=== PATIENT | male | born 1950 | race Caucasian/White ===

== ENCOUNTER 2016-10-12 17:33 | Observation (INO) | payer MEDICARE ==
[~2016-10-12] VITALS: Ht 177.8 cm; Wt 91.0 kg
[2016-10-12] VITALS (7 sets, daily range): BP systolic 137–188; BP diastolic 86–117; PULSE 82–101; RESP 15–25; TEMP 98.6–99.1; O2SAT 94–98
[2016-10-12] MEDS ORDERED: MORPHINE SULFATE 4 MG/ML INJ IV PUSH ONE ×3 (17:45→21:15)
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
[2016-10-12 18:04] LABS: AUTOMATED NEUTROPHIL # 5.2 TH/MM3 (1.8-7.7); BASOPHIL % 0.3 % (0.0-2.0); EOSINOPHIL # 0.1 TH/MM3 (0-0.4); EOSINOPHIL % 0.8 % (0.0-4.0); HEMATOCRIT 48.4 % (39.0-51.0); HEMO FLAGS DIFF FINAL; LYMPHOCYTE # 1.8 TH/MM3 (1.0-4.8); MEAN CELL VOLUME 92.3 FL (80.0-100.0); MEAN CORPUSCULAR HEMOGLOBIN 31.4 PG (27.0-34.0); NEUT % 65.9 % (16.0-70.0); PLATELET COUNT 221 TH/MM3 (150-450); RED BLOOD COUNT 5.25 MIL/MM3 (4.50-5.90); RED CELL DISTRIBUTION WIDTH 14.2 % (11.6-17.2); WHITE BLOOD COUNT 7.9 TH/MM3 (4.0-11.0)
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
[2016-10-12 18:22] LABS: ANION GAP 9 MEQ/L (5-15); BICARBONATE 24.6 MEQ/L (21.0-32.0); BLOOD UREA NITROGEN 26 MG/DL (7-18); CHLORIDE 108 MEQ/L (98-107); GLOMERULAR FILTRATION RATE 42 ML/MIN (>89); POTASSIUM 3.9 MEQ/L (3.5-5.1); SODIUM (NA) 142 MEQ/L (136-145)
[2016-10-12 18:51] LABS: INTERNATIONAL NORMALIZED RATIO 0.9 RATIO
[2016-10-12 18:55] LABS: APTT (PATIENT) 26.4 SEC (24.3-30.1)
[2016-10-12] MEDS ORDERED: LISI10TA3 PO (19:05)
[2016-10-12] MEDS ORDERED: ASPI81CH7 CHEW (19:05)
[2016-10-12] MEDS ORDERED: ROSU10 PO (19:05)
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
--- NOTE | 2016-10-12 20:12 | RADRPT ---
EXAM DATE/TIME: 10/12/2016 19:27 [facility] COMPARISON: No previous studies available for comparison. INDICATIONS : Hit in the center of chest with hydralic press. IV CONTRAST: 71 cc Omnipaque 350 (iohexol) IV ; Cumulative dose for multiple exams. RADIATION DOSE: 17.94 CTDIvol (mGy) ; Combined studies - Thorax/Abdomen/Pelvis MEDICAL HISTORY : Cardiovascular disease. Hypertension. SURGICAL HISTORY : CABG Colon resection.Splenectomy. ENCOUNTER: Initial ACUITY: 1 day PAIN SCALE: 10/10 LOCATION: chest TECHNIQUE: Volumetric scanning of the chest was performed. Using automated exposure control and adjustment of t he mA and/or kV according to patient size, radiation dose was kept as low as reasonably achievable to obtain optimal diagnostic quality images. FINDINGS: LUNGS: Posterior atelectatic changes are noted within the lung bases. There is no consolidation or pneumotho rax. No concerning pulmonary nodule is visualized. PLEURA: There is no pleural thickening or pleural effusion. MEDIASTINUM: The heart and great vessels demonstrate no acute abnormality. There is no mediastinal or hilar lymph adenopathy. Median sternotomy wires are noted status post cardiac surgery. AXILLAE: Within normal limits. No lymphadenopathy. SKELETAL: Within normal limits for patient age. MISCELLANEOUS: The visualized upper abdominal organs demonstrate no acute abnormality. CONCLUSION: Posterior atelectatic changes within the lung bases. Torsten Choi MD on October 12, 2016 at 20:08 Board Certified Radiologist. This report was verified electronically.
[2016-10-12] MEDS ORDERED: IOHEXOL 350 MG/ML 10 ML VIAL (for RAD DIAG) IV ONE (20:18)
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
[2016-10-12] MEDS ORDERED: TETANUS/DIPHTHERIA TOXOID ADULT 0.5 ML VIAL IM ONE (21:15)
--- NOTE | 2016-10-12 21:43 | RADRPT ---
EXAM DATE/TIME: 10/12/2016 21:26 [facility] COMPARISON: No previous studies available for comparison. INDICATIONS : Left arm pain after heavy machine fell on arm. MEDICAL HISTORY : None. SURGICAL HISTORY : None. ENCOUNTER: Initial ACUITY: 1 day PAIN SCORE: 4/10 LOCATION: Left forearm FINDINGS: Moderate degenerative changes are noted involving the radiocarpal and ulnar carpal joint space. Ther e is no acute fracture or dislocation of the radius or ulna. There is a tiny metallic foreign body w ithin the proximal soft tissues of the left forearm. A small spur is noted arising from the olecrano n process of the proximal ulna. CONCLUSION: 1. No acute fracture or dislocation of the radius or ulna. 2. Moderate degenerative changes involving the radiocarpal and ulnar carpal joint space. 3. Small spur protruding from the olecranon process of the proximal ulna. 4. Tiny radiopaque foreign body within the proximal soft tissues of the left forearm. Torsten Choi MD on October 12, 2016 at 21:36 Board Certified Radiologist. This report was verified electronically.
--- NOTE | 2016-10-12 21:47 | RADRPT ---
EXAM DATE/TIME: 10/12/2016 21:29 [facility] COMPARISON: No previous studies available for comparison. INDICATIONS : Left hand pain after machine fell on hand. MEDICAL HISTORY : None. SURGICAL HISTORY : None. ENCOUNTER: Initial ACUITY: 1 day PAIN SCORE: 4/10 LOCATION: Left proximal hand FINDINGS: Moderate arthritic changes are noted involving the radiocarpal and ulnar carpal joint. There is an o ld ununited fracture involving the ulnar styloid process. There is no acute fracture or dislocation. Mild degenerative changes are noted involving the first carpometacarpal joint and the scaphotrapezi um and scaphotrapezoid joints. Mild degenerative changes are also noted involving the first interpha langeal joint. CONCLUSION: 1. No acute fracture or dislocation. 2. Old ununited fracture involving the ulnar styloid process. 3. Moderate arthritic changes involving the radiocarpal and ulnar carpal joints. 4. Mild arthritic changes involving the first carpometacarpal joint, first interphalangeal joint and scaphotrapezium/scaphotrapezoid joints. Torsten Choi MD on October 12, 2016 at 21:39 Board Certified Radiologist. This report was verified electronically.
[2016-10-12] MEDS ORDERED: MORPHINE SULFATE 4 MG/ML INJ IV PRN (23:15)
[2016-10-12] MEDS ORDERED: ONDANSETRON HCL 4 MG/2 ML VIAL IV PRN (23:15)
[2016-10-12] MEDS ORDERED: SODIUM CHLORIDE 0.9% FLUSH 10 ML FLUSH IV FLUSH PRN (23:15)
[2016-10-12] MEDS ORDERED: ACETAMINOPHEN/HYDROcodone 325 MG/5 MG TAB PO PRN (23:15)
[2016-10-12] MEDS ORDERED: MISCELLANEOUS NURSING INFORMATION XX SCH (23:15)
[2016-10-12] MEDS ORDERED: CHLORHEXIDINE GLUCONATE 2 % 1 PACK (2 CLOTHS) TOP PRN (23:15)
[2016-10-13] VITALS (7 sets, daily range): BP systolic 102–169; BP diastolic 66–99; PULSE 59–95; RESP 12–22; O2SAT 94–100
[2016-10-13] MEDS: DOCUSATE SODIUM 100 MG CAP PO SCH ×2 (00:01→07:46)
[2016-10-13] MEDS: PANTOPRAZOLE SODIUM 40 MG VIAL IVP SCH ×2 (00:01→07:46)
[2016-10-13] MEDS: ACETAMINOPHEN/HYDROcodone 325 MG/5 MG TAB PO PRN ×2 (00:02→04:54)
[2016-10-13] MEDS: HEPARIN SODIUM - SQ 10,000 UNITS/ML VIAL SQ SCH ×2 (00:19→06:00)
[2016-10-13] MEDS ORDERED: CHLORHEXIDINE GLUCONATE 2 % 1 PACK (2 CLOTHS) TOP SCH (04:00)
[2016-10-13 05:07] LABS: AUTOMATED NEUTROPHIL # 3.9 TH/MM3 (1.8-7.7); BASOPHIL % 0.5 % (0.0-2.0); EOSINOPHIL # 0.1 TH/MM3 (0-0.4); HEMATOCRIT 43.9 % (39.0-51.0); HEMO FLAGS DIFF FINAL; LYMPH % 23.4 % (9.0-44.0); LYMPHOCYTE # 1.5 TH/MM3 (1.0-4.8); MEAN CELL VOLUME 93.7 FL (80.0-100.0); MEAN CORPUSCULAR HEMOGLOBIN 30.9 PG (27.0-34.0); MEAN CORPUSCULAR HGB CONC 32.9 % (32.0-36.0); MONO % 10.7 % (0.0-8.0); NEUT % 63.4 % (16.0-70.0); PLATELET COUNT 202 TH/MM3 (150-450); RED BLOOD COUNT 4.68 MIL/MM3 (4.50-5.90); RED CELL DISTRIBUTION WIDTH 14.5 % (11.6-17.2); WHITE BLOOD COUNT 6.2 TH/MM3 (4.0-11.0)
[2016-10-13 05:30] LABS: BICARBONATE 22.8 MEQ/L (21.0-32.0); POTASSIUM 3.8 MEQ/L (3.5-5.1)
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
--- NOTE | 2016-10-13 06:16 | RADRPT ---
EXAM DATE/TIME: 10/13/2016 05:27 [facility] COMPARISON: CHEST SINGLE AP, October 12, 2016, 17:46. INDICATIONS : Chest pain. MEDICAL HISTORY : None. SURGICAL HISTORY : CABG. ENCOUNTER: Subsequent ACUITY: 2 days PAIN SCORE: Non-responsive. LOCATION: Bilateral chest FINDINGS: There is minimal basilar atelectasis or scarring. No effusion. No pneumothorax. Postoperative CABG. CONCLUSION: 1. Minimal basilar atelectasis. Francisco Choi MD on October 13, 2016 at 6:14 Board Certified Radiologist. This report was verified electronically.
[2016-10-13] MEDS: SODIUM CHLOR 0.9% 1000 ML INJ 1,000 ML IV SCH ×2 (07:53)
[2016-10-13] MEDS ORDERED: PERC5TAB12 PO (10:59)
[2016-10-13] MEDS ORDERED: DOCU1CAP39 PO (10:59)
[2016-10-13] MEDS ORDERED: ASPIRIN 81 MG CHEW TAB CHEW SCH (11:00)
[2016-10-13] MEDS ORDERED: ATORVASTATIN 20 MG TAB PO SCH (11:00)
[2016-10-13] MEDS ORDERED: LISINOPRIL 10 MG TAB PO SCH (11:00)
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
--- NOTE | 2016-10-14 07:28 | EKG ---
Date Performed: 10/12/2016 Time Performed: 17:40:02 PTAGE: 66 years EKG: SINUS TACHYCARDIA BORDERLINE LEFT AXIS DEVIATION NONSPECIFIC ST & T-WAVE ABNORMALITY ABNORM AL ECG Compared to PREVIOUS TRACING , the nonspecific lateral T-wave changes are new. The tracing continues to show delayed R-wave transition and there has been a leftward shift in the axis. PREVIOUS TRACIN03/28/2003 13.11 DOCTOR: Arlin Hyman Interpretating Date/Time 10/14/2016 07:26:36
== END 2016-10-13 12:40 | disposition home or self-care (01) ==
LOC: NEPA 17:33 → NEDA 21:33 → NEDH 10-13 01:33
PROVIDERS: ADMIT Surgery; ATTEND Surgery
DX: S29.9XXA Unspecified injury of thorax, initial encounter (principal); E78.00 Pure hypercholesterolemia, unspecified; I25.2 Old myocardial infarction; I25.10 Atherosclerotic heart disease of native coronary artery without angina pectoris; M19.90 Unspecified osteoarthritis, unspecified site; I10 Essential (primary) hypertension; Z90.81 Acquired absence of spleen; Z88.5 Allergy status to narcotic agent; W31.89XA Contact with other specified machinery, initial encounter; Y93.89 Activity, other specified; Z79.82 Long term (current) use of aspirin; Z95.1 Presence of aortocoronary bypass graft; J98.11 Atelectasis
CPT/HCPCS: 70450; 71010; 71260; 73090; 73120; 74177; 80048; 84484; 85025; 85610; 85730; 86850; 86900; 86901; 90714; 93005; 94150; 96374; 96376; 99285; C9113; G0378; J1644; J2270; J7030; Q9967

== ENCOUNTER 2016-12-15 13:30 | Inpatient (IN) | payer MEDICARE ==
[~2016-12-15] VITALS: Ht 180.3 cm; Wt 103.1 kg
[~2016-12-15 13:30] MED LIST: ASPI81CH7 CHEW; LISI10TA3 PO; ROSU10 PO
--- NOTE | 2016-12-28 18:22 | MH ---
cc: NARENDRA ANDERSON DATE OF ADMISSION 12/29/2016 ADMISSION DIAGNOSIS Osteoarthritis left knee. HISTORY OF THE PRESENT ILLNESS This patient is a 66-year-old white male with significant pain in the region of his left knee. The patient had many years of conservative care including anti-inflammatory medications, injections of cortisone. He has had injections of viscoelastic supplements, altered activities and physical therapy. The patient was followed by my partner, Dr. Dyre. He was transferred to my care recently. The patient now presents for surgical treatment of his left knee. PAST MEDICAL HISTORY, SOCIAL HISTORY, FAMILY HISTORY AND REVIEW OF SYMPTOMS See attached notes. PHYSICAL EXAMINATION VITAL SIGNS: feet 10 inches. BMI 28.7. Blood pressure 140/80. HEENT: Normocephalic, atraumatic. Pupils equal, round, reactive to light and accommodation. Extraocular motions intact. NECK: Supple. CHEST: Clear. HEART: Regular rate and rhythm. ABDOMEN: Soft, nontender, normoactive sounds. MUSCULOSKELETAL: Left knee pain with range of motion, crepitus with range of motion. Tenderness mostly along the medial joint line. Varus deformity. Range of motion extension zero, flexion 120 degrees. Neurologic and vascular emanations within normal limits. IMPRESSION Osteoarthritis left knee. PLAN Left total knee replacement arthroplasty. CONSENT The risks of surgery including infection, bleeding, loss of motion, continued pain, need for further surgery, neurologic and vascular injury. The patient understands these issues and wishes to press on with surgery as outlined above. MD KIARA Melchor/RANDALL /5:53 PM /6:05 PM
[2016-12-29] MEDS ORDERED: SODIUM CHLORIDE 0.9% IV SCH (06:45)
[2016-12-29] MEDS ORDERED: METOPROLOL TARTRATE 25 MG TAB PO PRN (06:45)
[2016-12-29] MEDS ORDERED: POVIDONE IODINE 7.5% SCRUB 118 ML BOTTLE TOPICAL SCH (06:45)
[2016-12-29] MEDS ORDERED: LACTATED RINGER'S 1000 ML IV PRN (06:45)
[2016-12-29] MEDS ORDERED: INSULIN HUMAN REGULAR 1,000 UNITS/10 ML VIAL SQ PRN (06:45)
[2016-12-29] MEDS ORDERED: POVIDONE IODINE 5% (ANTISEPSIS KIT) 4 APPLICATIONS EACH NARE PRN (06:45)
[2016-12-29] MEDS ORDERED: CHLORHEXIDINE GLUCONATE 2 % 1 PACK (2 CLOTHS) TOPICAL PRN (06:45)
[2016-12-29] MEDS ORDERED: TRANEXAMIC ACID IV SCH (06:45)
[2016-12-29] MEDS ORDERED: ceFAZolin 2 GM PREMIX 50 ML IV SCH (06:45)
[2016-12-29] MEDS ORDERED: EXPAREL PERI-ARTICULAR INJECTION (TOTAL VOL. 60 ML) P-ARTICULR SCH ×2 (06:45)
[2016-12-29] MEDS ORDERED: SODIUM CHLORID 0.9% 500 ML IV PRN (06:45)
[2016-12-29] MEDS ORDERED: VANCOMYCIN 1000 MG/NS 250 ML (for <70 kg) IV SCH ×2 (06:45)
[2016-12-29 07:00] VITALS: BP 159/93; PULSE 69; RESP 18; TEMP 98.5; O2SAT 97
[2016-12-29] MEDS ORDERED: GENTAMICIN SULFATE 80 MG/2 ML VIAL ONE ×2 (07:41→07:45)
[2016-12-29] MEDS ORDERED: BUPIVACAINE LIPOSOME PF 1.3% 20 ML VIAL ONE (07:46)
[2016-12-29] MEDS ORDERED: DEXAMETHASONE SOD PHOS 4 MG/ML VIAL ONE (08:12)
[2016-12-29] MEDS ORDERED: FAMOTIDINE 20 MG/2 ML VIAL ONE (08:12)
[2016-12-29] MEDS ORDERED: MIDAZOLAM HCL 2 MG/2 ML VIAL ONE ×2 (08:12→11:13)
[2016-12-29] MEDS ORDERED: PROPOFOL 200 MG/20 ML AMP IV ONE (10:25)
[2016-12-29] MEDS ORDERED: ONDANSETRON HCL 4 MG/2 ML VIAL IV PUSH ONE (10:26)
[2016-12-29] MEDS ORDERED: ePHEDrine/NS 25 MG/5 ML SYR IV ONE (10:26)
[2016-12-29] MEDS ORDERED: LACTATED RINGER'S 1000 ML INJ 1,000 ML IV ONE (10:26)
[2016-12-29] MEDS ORDERED: SODIUM CHLORIDE 0.9% FLUSH 5 ML FLUSH IVF PRN (10:30)
[2016-12-29] MEDS ORDERED: TEMAZEPAM 15 MG CAP PO PRN (10:30)
[2016-12-29] MEDS ORDERED: MISCELLANEOUS NURSING INFORMATION XX PRN (10:30)
[2016-12-29] MEDS ORDERED: NALOXONE HCL 0.4 MG/ML AMP IV PRN (10:30)
[2016-12-29] MEDS ORDERED: MISCELLANEOUS PHARMACY INFORMATION XX ONE (10:30)
[2016-12-29] MEDS ORDERED: MORPHINE SULFATE 8 MG/ML INJ IV PUSH PRN (10:30)
[2016-12-29] MEDS ORDERED: Post-op Orders (for Pharmacy) MISC XX ONE (10:30)
--- NOTE | 2016-12-29 10:31 | PD.OP ---
cc: Chad Sandoval MD Operative Report Date of Surgery: Dec 29, 2016 Preoperative Diagnosis: Osteoarthritis left knee Postoperative Diagnosis: Same Procedure: Left total knee replacement arthroplasty Anesthesia: Gen. with regional block, abductor canal Surgeon: Chad Sandoval Shopper'S Aide(s): DANGELO Peck Operation and Findings: EBL: 50 cc INDICATION: This patient presents with long-standing arthritis of the knee. Attachment record documents conservative measures. The patient now presents for surgical treatment. NOTE: Yee Peck PA-C was present for the entire surgical procedure as my first aid teacher. In my medical opinion her skill and care was necessary for proper management of this patient. TOURNIQUET TIME: 62 minutes COMPANY: [employer] FEMUR: Size 5, posterior stabilized, cemented TIBIA: Size, fixed bearing, cemented PATELLA: 32 mm POLYETHYLENE INSERT: 13 mm PROCEDURE: This patient was brought the operating room and anesthetized in the supine position. The patient was positioned supine on the table. The tourniquet was placed about the thigh, and the leg was scrubbed with alcohol followed by Hibiclens followed by ChloraPrep and draped sterilely. A timeout was done, and antibiotics were given. After exsanguination the tourniquet was inflated to 250 mmHg. An anterior incision was made and a median parapatellar arthrotomy was performed. The patella was released laterally and subluxed allowing freehand cut of the patella which was then sized. A metal cap was placed over the exposed patellar surface for protection. A commercial airplane pilot hole was placed in the distal femur allowing a 4 valgus cut removing 10 mm from the distal femur. Anterior posterior and chamfer cuts were made. The posterior stabilize osteotomy was made. The attention was directed to the tibia. Retractors were positioned. The external alignment guide was used allowing the lateral tibia to be used as referencing guide and cut utilizing an oscillating saw taking care to avoid any injury to the surrounding soft tissues. This was sized properly. Trial reduction showed that the insert fit nicely. The patient had range of motion extension 0 flexion 125. A medial release was not necessary. The bony surfaces prepared. On the back table 2 packets of methylmethacrylate were mixed. The components were cemented. Excess cement was removed. The tourniquet let down and hemostasis was controlled. The final plastic insert was inserted. Range of motion was the same as previously noted. A drain was brought through a separate stab incision. The arthrotomy was repaired with interrupted #1 Vicryl suture, subcutaneous tissue 2-0 Vicryl suture and skin with metallic solange A sterile dressing was applied. Sponge counts, needle counts and instrument counts were all correct. The patient tolerated procedure well and was taken to recovery in satisfactory condition. FINDINGS: There is evidence of mild MCL laxity from a previous injury. The final alignment appeared to be very satisfactory. No comp location was appreciated. Chad Sandoval MD Dec 29, 2016 10:31
[2016-12-29] MEDS ORDERED: OXYC1TAB63 PO (10:32)
[2016-12-29] MEDS ORDERED: XARE10TA PO (10:32)
[2016-12-29] MEDS ORDERED: *morphine SULFATE 8 MG/ML PERIprocedure ONLY ONE (11:06)
[2016-12-29] MEDS: LACTATED RINGER'S 1000 ML INJ 1,000 ML IV SCH ×2 (11:10→22:57)
[2016-12-29] MEDS ORDERED: fentaNYL CITRATE 250 MCG/5 ML AMP ONE (11:13)
[2016-12-29] MEDS ORDERED: *MEPERIDINE 25 MG INJ VIAL PERIprocedural Use ONLY ONE (11:19)
[2016-12-29] MEDS ORDERED: DO NOT ADM ANY ANTICOAGULANT DRUGS PRN (11:23)
[2016-12-29 12:00] VITALS: BP 155/115; PULSE 88; RESP 16; TEMP 95.7; O2SAT 98
--- NOTE | 2016-12-29 12:05 | RADRPT ---
EXAM DATE/TIME: 12/29/2016 11:08 [facility] COMPARISON: No previous studies available for comparison. INDICATIONS : Post op left knee surgery MEDICAL HISTORY : None. SURGICAL HISTORY : None. ENCOUNTER: Initial ACUITY: 1 day PAIN SCORE: 10/10 LOCATION: Left knee FINDINGS: The patient is status post left total knee replacement. There is no fracture or dislocation. The pr osthesis appears to be in good position. CONCLUSION: 1. Status post left total knee replacement with prosthesis in good position. Torsten Choi MD on December 29, 2016 at 11:44 Board Certified Radiologist. This report was verified electronically.
[2016-12-29] MEDS: MORPHINE SULFATE 30 MG/30 ML PCA IV SCH (12:12)
[2016-12-29] MEDS: ATORVASTATIN 20 MG TAB PO SCH (13:17)
[2016-12-29] MEDS: PCA - TOTAL MG MORPHINE DELIVERED PER SHIFT SCH ×2 (13:17→22:00)
[2016-12-29 13:21] VITALS: BP 148/89
[2016-12-29 16:00] VITALS: BP 152/97; PULSE 89; RESP 16; TEMP 97.4; O2SAT 97
[2016-12-29 17:25] VITALS: O2SAT 98
[2016-12-29] MEDS: oxyCODONE/ACETAMINOPHEN 5 MG/325 MG TAB PO PRN ×2 (18:21→23:34)
[2016-12-29] MEDS ORDERED: ONDANSETRON HCL 4 MG/2 ML VIAL IV PUSH PRN (20:15)
[2016-12-29 21:00] VITALS: BP 160/87; PULSE 81; RESP 17; TEMP 96.7; O2SAT 97
[2016-12-29] MEDS: MAGNESIUM HYDROXIDE SUSP 30 ML CUP PO SCH (21:00)
[2016-12-29] MEDS: SODIUM CHLORIDE 0.9% FLUSH 5 ML FLUSH IVF SCH (21:00)
[2016-12-29] MEDS: SENNOSIDES 8.6 MG TAB PO SCH (21:05)
[2016-12-29] MEDS: LISINOPRIL 10 MG TAB PO SCH (21:05)
[2016-12-30] VITALS (8 sets, daily range): BP systolic 116–161; BP diastolic 71–94; PULSE 69–94; RESP 16–18; TEMP 97–98.5; O2SAT 92–98
[2016-12-30] MEDS: oxyCODONE/ACETAMINOPHEN 5 MG/325 MG TAB PO PRN ×5 (00:42→20:33)
[2016-12-30] MEDS: MORPHINE SULFATE 30 MG/30 ML PCA IV SCH (01:28)
[2016-12-30] MEDS: PCA - TOTAL MG MORPHINE DELIVERED PER SHIFT SCH ×3 (05:59→22:00)
[2016-12-30] MEDS ORDERED: CYCLOBENZAPRINE HCL 10 MG TAB PO PRN (06:15)
[2016-12-30 07:21] LABS: HEMATOCRIT 34.3 % (39.0-51.0); REVIEW FLAG FINAL
[2016-12-30] MEDS ORDERED: CPMMACHINE (08:09)
[2016-12-30] MEDS ORDERED: WALKER WHEELS/F1 MIS (08:09)
[2016-12-30] MEDS ORDERED: COMMODE 3-IN-11 MIS (08:10)
--- NOTE | 2016-12-30 08:10 | HHI.DCPOC ---
Discharge Care Plan Diagnosis: (1) Left knee pain (2) Osteoarthritis of left knee Your Health Problems Are: Incision/Drains Swelling Goals to Promote Your Health * To prevent worsening of your condition and complications * To maintain your health at the optimal level Directions to Meet Your Goals Take your medications as prescribed Follow your dietary instruction Follow activity as directed Keep your appointments as scheduled Take your immunizations and boosters as scheduled If your symptoms worsen call your PCP, if no PCP go to Urgent Care Center or Emergency Room Smoking is Dangerous to Your Health. Avoid second hand smoke Call the 24-hour hour crisis hotline for domestic abuse at Katie Perez Dec 30, 2016 08:10
--- NOTE | 2016-12-30 08:11 | HHI.DS ---
Discharge Summary Admission Date Dec 29, 2016 at 06:19 Discharge Date: Dec 31, 2016 Admitting Diagnosis see below Diagnosis: (1) Left knee pain Diagnosis: Principal (2) Osteoarthritis of left knee Diagnosis: Principal Procedures Left total knee arthroplasty Brief History This is a 66 year old male patient with a multi year history of left knee pain. He sought out medical treatment when his function began to decline. Imaging studies were performed which showed moderate to significant osteoarthritis of the left knee. Conservative measures were pursued including use of medications and injections. He continued to decline so surgical treatment was recommended in the form of left total knee arthroplasty. He agreed and presents today to pursue the above. CBC/BMP: 12/30/16 0630 Significant Findings Laboratory Tests Test 12/30/16 06:30 Hemoglobin 11.2 GM/DL (13.0-17.0) Hematocrit 34.3 % (39.0-51.0) Hospital Course Surgical treatment was performed on the day of admission without complication. He recovered well in PACU and was transferred to the orthopaedic floor. Pain was controlled with IV and oral medications. DVT prophylaxis was initiated pod# 1. He was compliant with physical therapy and all restrictions. After 2 days he was found to be stable and discharged home with home health care. He was instructed to continue therapy, pursue a high fiber diet for 3-5 days and to continue his xarelto for 15 days postop. Pt Condition on Discharge: Stable Discharge Disposition: Disch w/ Home Health Serv Discharge Instructions Diet Instructions: High Fiber Diet Activities You Can Perform: Weight Bearing as Araceli, See Additionl Instruction Activities to Avoid: Strenuous Activity Additional Activity Instruc.: TKA protocol New Medications: Commode 3-in-1 (Commode 3-in-1) 1 Mis Mis 1 EA .ROUTE DIRECTED #1 Ref 0 EA CPM-Continuous Passive Motion Machine (CPM-Continuous Passive Motion Machine) 1 Ea Device 1 EA .ROUTE DIRECTED #1 Ref 0 EA Walker with Front Wheels (Walker with Front Wheels) 1 Mis Mis 1 EA .ROUTE DIRECTED #1 Ref 0 EA Oxycodone-Acetaminophen (Oxycodone-Acetaminophen) 5-325 mg Tab 1 TAB PO Q4H PRN PAIN LESS THAN 5 ON SCALE #50 TAB Rivaroxaban (Xarelto) 10 Mg Tab 10 MG PO Q24H Prevent Blood Clot #15 TAB Continued Medications: Aspirin (Aspirin Children's) 81 Mg Chew 81 MG CHEW DAILY Ref 0 TAB Lisinopril (Lisinopril) 10 Mg Tab 10 MG PO BID #30 Ref 0 TAB Rosuvastatin (Crestor) 10 Mg Tab 10 MG PO DAILY Cholesterol Management #30 Ref 0 TAB Katie Perez Dec 30, 2016 08:11
--- NOTE | 2016-12-30 08:14 | HHI.FF ---
Face to Face Verification Diagnosis: (1) Left knee pain (2) Osteoarthritis of left knee Physical Therapy Gait training, Safety evaluation Knee: Total knee, Protocol: Left, Full weight bearing Canvas Knee Splint: When in bed & 2 pillows btw thighs Left LE Weight Bearing: WB as tolerated Additional Instructions PT 4 days/wk for 2 weeks. WBAT LLE. TKA protocol. CPM bid as tolerated 0-60 with flexion 100. Nursing RN Days per Week: 2 x Week(s): 1 Dressing Changes: Do not change dressing Additional Instructions Hold dressing changes unless saturated. Vitals assessment. I have seen patient Tyler Altamirano on 12/30/16. My clinical findings support the need for the requested home health care services because: Limited ability to care for self High risk of falls I certify that my clinical findings support that this patient is homebound because: Post-op weakness Unsteady gait/balance Katie Perez Dec 30, 2016 08:13
[2016-12-30] MEDS: SODIUM CHLORIDE 0.9% FLUSH 5 ML FLUSH IVF SCH ×2 (09:00→20:32)
[2016-12-30] MEDS: LISINOPRIL 10 MG TAB PO SCH ×2 (09:33→20:32)
[2016-12-30] MEDS: MAGNESIUM HYDROXIDE SUSP 30 ML CUP PO SCH ×2 (09:34→20:32)
[2016-12-30] MEDS: ATORVASTATIN 20 MG TAB PO SCH (09:34)
[2016-12-30] MEDS: RIVAROXABAN 10 MG TAB PO SCH (10:06)
[2016-12-30] MEDS: LACTATED RINGER'S 1000 ML INJ 1,000 ML IV SCH ×2 (11:27→22:41)
--- NOTE | 2016-12-30 13:24 | PD.ORT.PN ---
Subjective Subjective Remarks Moderate to signficant left knee pain after block wore off. Aching and throbbing. No new radiating leg pain. No CP or SOB. Questions about surgery and the prosthesis. No new CP or SOB. Objective Vitals Vital Signs Date Time Temp Pulse Resp B/P Pulse Ox O2 Delivery O2 Flow Rate FiO2 12/30/16 12:12 93 12/30/16 08:00 98.4 71 18 125/83 95 12/30/16 04:35 97.7 69 17 145/81 92 12/30/16 01:10 97.0 72 17 161/94 96 12/29/16 21:00 96.7 81 17 160/87 97 12/29/16 19:05 Room Air 12/29/16 17:25 98 Nasal Cannula 21 12/29/16 16:00 97.4 89 16 152/97 97 12/29/16 13:21 148/89 I/O 12/29/16 12/29/16 12/29/16 12/30/16 12/30/16 12/30/16 06:59 14:59 22:59 06:59 14:59 22:59 Intake Total 1690 ml 911 ml 1768 ml Output Total 540 ml 880 ml 460 ml Balance 1150 ml 31 ml 1308 ml Intake Oral 240 ml 240 ml 480 ml IV Total 300 ml 671 ml 1288 ml Other 1150 ml Output Urine Total 450 ml 700 ml 400 ml Drainage Total 40 ml 180 ml 60 ml Estimated Blood Loss 50 ml # Bowel Movements 0 0 Result Diagram: 12/30/16 0630 Procedures Left total knee arthroplasty Objective Remarks Sitting up in bed NAD VSS LLE Dressing c/d/i, drain in place (lateral), mild swelling, no erythema +motor at, +sens, +nvi neg homans bilat Assessment & Plan Ortho Post Op Day #: 1 Problem List: (1) Left knee pain (2) Osteoarthritis of left knee Assessment and Plan pod#1 s/p L TKA D/C [employer] - change to po pain meds. D/C left knee drain. Ok to change drain dressing but hold incision dressing changes unless saturated. WBAT. TKA protocol CPM bid as tolerated. Xarelto 10mg qd. D/C planning, [facility] tomorrow. DME, F2F written. Katie Perez Dec 30, 2016 13:24
[2016-12-30] MEDS: SENNOSIDES 8.6 MG TAB PO SCH (20:32)
[2016-12-31] VITALS (7 sets, daily range): BP systolic 146–179; BP diastolic 78–97; PULSE 92–112; RESP 18–19; TEMP 97–99.6; O2SAT 92–97
[2016-12-31] MEDS: PCA - TOTAL MG MORPHINE DELIVERED PER SHIFT SCH ×2 (06:00→20:55)
--- NOTE | 2016-12-31 08:37 | PD.ORT.PN ---
Subjective Subjective Remarks Moderate pain left knee slightly improved today. No new radiating leg pain. No CP or SOB. No other complaints. Ready for discharge today. Desires home w hhc. Objective Vitals Vital Signs Date Time Temp Pulse Resp B/P Pulse Ox O2 Delivery O2 Flow Rate FiO2 12/31/16 06:00 16 12/31/16 04:25 98.8 97 19 155/89 97 12/31/16 00:15 97.0 92 18 148/80 93 12/30/16 22:00 16 12/30/16 20:25 98.1 94 18 160/87 97 12/30/16 16:00 98.5 88 16 158/87 96 12/30/16 14:29 89 116/71 12/30/16 14:00 16 12/30/16 12:12 93 12/30/16 12:00 98.5 84 18 160/93 98 I/O 12/30/16 12/30/16 12/30/16 12/31/16 12/31/16 12/31/16 07:00 15:00 23:00 07:00 15:00 23:00 Intake Total 1768 ml 635 ml 480 ml 720 ml Output Total 460 ml 700 ml 450 ml 1050 ml Balance 1308 ml -65 ml 30 ml -330 ml Intake Oral 480 ml 480 ml 480 ml 720 ml IV Total 1288 ml 155 ml Output Urine Total 400 ml 600 ml 450 ml 1050 ml Drainage Total 60 ml 100 ml # Voids 2 # Bowel Movements 0 0 0 Result Diagram: 12/30/16 0630 Procedures Left total knee arthroplasty Objective Remarks Laying in bed NAD VSS LLE Dressing c/d/i, drain removed, site clean, some swelling, no erythema +motor at, +sens, +nvi neg homans bilat Assessment & Plan Ortho Post Op Day #: 2 Problem List: (1) Left knee pain (2) Osteoarthritis of left knee Assessment and Plan pod#2 s/p L TKA Ortho stable. Ok for d/c home w [facility] after PT this morning. PO pain meds as needed. Rx written. Hold dressing changes unless saturated. WBAT. TKA protocol. CPM bid as tolerated. Xarelto 10mg qd. F/U in 2 weeks as scheduled. DME, F2F written. Katie Perez Dec 31, 2016 08:37
[2016-12-31] MEDS: MAGNESIUM HYDROXIDE SUSP 30 ML CUP PO SCH ×2 (09:00→20:50)
[2016-12-31] MEDS: SODIUM CHLORIDE 0.9% FLUSH 5 ML FLUSH IVF SCH ×2 (09:00→20:49)
[2016-12-31] MEDS: oxyCODONE/ACETAMINOPHEN 5 MG/325 MG TAB PO PRN ×3 (10:18→20:50)
[2016-12-31] MEDS: RIVAROXABAN 10 MG TAB PO SCH (10:19)
[2016-12-31] MEDS: LISINOPRIL 10 MG TAB PO SCH ×2 (10:19→20:49)
[2016-12-31] MEDS: ATORVASTATIN 20 MG TAB PO SCH (10:19)
[2016-12-31] MEDS: LACTATED RINGER'S 1000 ML INJ 1,000 ML IV SCH ×2 (12:27→20:55)
[2016-12-31] MEDS: SENNOSIDES 8.6 MG TAB PO SCH (20:51)
[2017-01-01 00:25] VITALS: BP 152/83; PULSE 105; RESP 18; TEMP 97.9; O2SAT 93
[2017-01-01] MEDS: oxyCODONE/ACETAMINOPHEN 5 MG/325 MG TAB PO PRN ×2 (01:01→09:31)
[2017-01-01] MEDS: PCA - TOTAL MG MORPHINE DELIVERED PER SHIFT SCH (06:00)
[2017-01-01 08:00] VITALS: BP 167/91; PULSE 104; RESP 18; TEMP 98.4; O2SAT 99
--- NOTE | 2017-01-01 08:01 | PD.ORT.PN ---
Subjective Subjective Remarks Still complains of moderate left knee pain that keeps him from 'moving at all'. RN called late last night stating he couldn't walk far so he was kept an additional evening. The RN noted this morning that through the night he got himself up without assistance and went to the restroom. No new radiating leg pain. No CP or SOB. No other complaints. Will d/c home today. Objective Vitals Vital Signs Date Time Temp Pulse Resp B/P Pulse Ox O2 Delivery O2 Flow Rate FiO2 01/01/17 00:25 97.9 105 18 152/83 93 12/31/16 22:26 95 12/31/16 20:20 99.6 112 18 149/97 95 12/31/16 16:00 98.3 100 18 146/78 95 12/31/16 12:00 97.9 105 18 154/84 96 12/31/16 08:00 21 12/31/16 08:00 98.7 93 18 179/97 92 I/O 12/31/16 12/31/16 12/31/16 01/01/17 01/01/17 01/01/17 07:00 15:00 23:00 07:00 15:00 23:00 Intake Total 944 ml 600 ml 720 ml 480 ml Output Total 1050 ml 600 ml 425 ml 725 ml Balance -106 ml 0 ml 295 ml -245 ml Intake Oral 720 ml 600 ml 720 ml 480 ml IV Total 224 ml Output Urine Total 1050 ml 600 ml 425 ml 725 ml # Voids 1 # Bowel Movements 0 0 0 0 Result Diagram: 12/30/16 0630 Procedures Left total knee arthroplasty Objective Remarks Laying in bed NAD VSS LLE Dressing c/d/i, drain removed, site clean, some swelling, no erythema +motor at, +sens, +nvi neg homans bilat Assessment & Plan Ortho Post Op Day #: 3 Problem List: (1) Left knee pain (2) Osteoarthritis of left knee Assessment and Plan pod#3 s/p L TKA Pt ended up staying additional evening despite ambulating independently at times. He still tells RN he cannot move leg but is able to do so on request. D/C home w [facility] today. PO pain meds as needed. Rx written. Hold dressing changes unless saturated. WBAT. TKA protocol. CPM bid as tolerated. Xarelto 10mg qd. F/U in 2 weeks as scheduled. DME, F2F written. Katie Perez Jan 01, 2017 08:01
[2017-01-01] MEDS: SODIUM CHLORIDE 0.9% FLUSH 5 ML FLUSH IVF SCH (09:00)
[2017-01-01] MEDS: LISINOPRIL 10 MG TAB PO SCH (09:30)
[2017-01-01] MEDS: MAGNESIUM HYDROXIDE SUSP 30 ML CUP PO SCH (09:30)
[2017-01-01] MEDS: RIVAROXABAN 10 MG TAB PO SCH (09:30)
[2017-01-01] MEDS: ATORVASTATIN 20 MG TAB PO SCH (09:30)
[2017-01-01 12:00] VITALS: BP 109/69; PULSE 121; RESP 18; TEMP 98.2; O2SAT 95
[2017-01-01] MEDS ORDERED: BISACODYL 10 MG SUPP RECTAL ONE (12:00)
== END 2017-01-01 18:08 | DRG 470 ==
LOC: HSDI 12-29 06:19 → N06A 12-29 12:03
PROVIDERS: ADMIT Orthopaedic Surgery Orthopaedic Surgery of the Spine; ATTEND Orthopaedic Surgery Orthopaedic Surgery of the Spine
PROC: 0SRD0J9 Replacement of Left Knee Joint with Synthetic Substitute, Cemented, Open Approach (ICD-10-PCS; principal; 2016-12-29 08:16)
DX: M17.12 Unilateral primary osteoarthritis, left knee (principal); I10 Essential (primary) hypertension; E78.5 Hyperlipidemia, unspecified; I25.10 Atherosclerotic heart disease of native coronary artery without angina pectoris; Z95.1 Presence of aortocoronary bypass graft; I25.2 Old myocardial infarction; Z90.81 Acquired absence of spleen
CPT/HCPCS: 36415; 73560; 85014; 85018; 86850; 86900; 86901; 86920; 94150; C1776; C9290; J0690; J1100; J1580; J2175; J2250; J2270; J2405; J3010; J3370; J7050; J7120; L1830

== ENCOUNTER → 2016-12-21 | Outpatient (CLI) | payer MEDICARE ==
[~2016-12-21] MED LIST changes: +COMMODE 3-IN-11 MIS; +CPMMACHINE; +DOCU1CAP39 PO; +OXYC1TAB63 PO; +PERC5TAB12 PO; +WALKER WHEELS/F1 MIS; +XARE10TA PO
[2016-12-21 09:03] LABS: BASOPHIL # 0.1 TH/MM3 (0-0.2); BASOPHIL % 0.7 % (0.0-2.0); EOSINOPHIL # 0.2 TH/MM3 (0-0.4); EOSINOPHIL % 2.2 % (0.0-4.0); HEMATOCRIT 43.2 % (39.0-51.0); HEMO FLAGS DIFF FINAL; LYMPH % 19.2 % (9.0-44.0); LYMPHOCYTE # 1.7 TH/MM3 (1.0-4.8); MEAN CELL VOLUME 94.8 FL (80.0-100.0); MEAN CORPUSCULAR HEMOGLOBIN 31.5 PG (27.0-34.0); MEAN CORPUSCULAR HGB CONC 33.3 % (32.0-36.0); MONO % 11.1 % (0.0-8.0); NEUT % 66.8 % (16.0-70.0); PLATELET COUNT 254 TH/MM3 (150-450); RED BLOOD COUNT 4.56 MIL/MM3 (4.50-5.90); RED CELL DISTRIBUTION WIDTH 14.1 % (11.6-17.2)
[2016-12-21 09:12] LABS: APTT (PATIENT) 27.9 SEC (24.3-30.1); INTERNATIONAL NORMALIZED RATIO 0.9 RATIO; PROTHROMBIN TIME - PATIENT 10.4 SEC (9.8-11.6)
[2016-12-21 09:26] LABS: BICARBONATE 27.6 MEQ/L (21.0-32.0)
[2016-12-21 09:27] LABS: BLOOD, URINE NEG (NEG); GLUCOSE,URINE NEG (NEG); KETONE, URINE NEG (NEG); NITRITE,URINE NEG (NEG); PH, URINE 5.5 (5.0-8.5); URINE COLOR YELLOW (YELLW/STRAW)
[2016-12-21 09:30] LABS: WESTERGREN SEDIMENTATION RATE 17 mm/hr (0-20)
[2016-12-21 10:17] LABS: RBC, URINE 0-3 /hpf (0-3)
[2016-12-21 10:18] LABS: COMMENT (UR) CULT NOT INDICATED; CULTURE IF INDICATED CULT NOT INDICATED; MUCUS URINE FEW /lpf (OCC)
== END ==
LOC: CPRE 07:49
PROVIDERS: ATTEND Orthopaedic Surgery Orthopaedic Surgery of the Spine
DX: Z01.812 Encounter for preprocedural laboratory examination (principal); Z01.818 Encounter for other preprocedural examination; Z79.01 Long term (current) use of anticoagulants; M17.11 Unilateral primary osteoarthritis, right knee
CPT/HCPCS: 36415; 80048; 81001; 85025; 85610; 85652; 85730